=== PATIENT | female | born 1965 | race Caucasian/White ===

== ENCOUNTER 2022-07-27 20:41 | Emergency (ER) | payer MEDICAID ==
[~2022-07-27] VITALS: Ht 157.4 cm; Wt 81.6 kg
--- NOTE | 2022-07-27 21:12 | ED Lower Extremity ---
General Chief Complaint: Lower Extremity Stated Complaint: SORE ON BOTTOM OF RIGHT FOOT Source: patient Exam Limitations: no limitations History of Present Illness Date Seen by Provider: Jul 27, 2022 Time Seen by Provider: 21:10 Initial Comments Patient is a 57-year-old female presents ED with wound to right plantar foot. Patient noticed 2 weeks ago a small blister. She reports pain with walking. Patient noted the blister rupturing and noted a small black dark "hole". Patient does report pain. She is type II diabetic but states she does not take her metformin on a regular basis. She denies neuropathy of her lower extremity. Denies of any specific pain at this time besides when she walks. Denies fever, chills, surrounding redness or swelling. Allergies and Home Medications Allergies Coded Allergies: hydrocodone (Verified Allergy, Unknown, 07/27/22) Patient Home Medication List Home Medication List Reviewed: Yes Cephalexin (Cephalexin) 500 Mg Tablet, 500 MG PO QID Prescribed by: LEON INMAN on 07/27/222230 Doxycycline Monohydrate (Doxycycline Monohydrate) 100 Mg Tablet, 100 MG PO BID Prescribed by: LEON INMAN on 07/27/222230 Review of Systems Constitutional: No chills, No diaphoresis, No fever, No malaise, No weakness EENTM: No ear pain, No blurred vision, No double vision Respiratory: No cough, No dyspnea on exertion Cardiovascular: No chest pain Gastrointestinal: No abdominal pain, No diarrhea, No nausea, No vomiting Genitourinary: No decreased output, No discharge Musculoskeletal: No back pain, No joint pain; muscle pain Skin: change in color All Other Systems Reviewed Negative Unless Noted: Yes Past [id number] Hx Patient Social History Tobacco Use?: No Substance use?: No Alcohol Use?: No Past Medical History Surgery/Hospitalization HX: TYPE 2 DM, DEPRESSION AND ANXIETY Physical Exam Vital Signs Vital Signs - First Documented 07/27/22 20:49 Pulse 94 B/P (MAP) 132/89 (103) Pulse Ox 100 O2 Delivery Room Air Capillary Refill : Height, Weight, BMI Height: '" Weight: lbs. oz. kg; BMI Method: General Appearance: WD/WN HEENT: PERRL/EOMI, normal ENT inspection, TMs normal, pharynx normal Neck: non-tender, full range of motion, supple Cardiovascular: regular rate, rhythm, no edema, no gallop Respiratory: chest non-tender, lungs clear, normal breath sounds, no respiratory distress, no accessory muscle use Gastrointestinal: normal bowel sounds, non tender, soft, no organomegaly Back: normal inspection, no CVA tenderness Feet: right foot other (Pea-sized ulcer right plantar foot with no active drainage. No fluctuant mass. No surrounding redness or swelling) Neurologic/Psychiatric: repair specialist II-XII nml as tested, no motor/sensory deficits, alert, normal mood/affect, oriented x 3 Progress/Results/Core Measures Results/Orders Lab Results Laboratory Tests Test 07/27/22 21:20 Range/Units White Blood Count 9.0 4.3-11.0 10^3/uL Red Blood Count 5.41 H 3.80-5.11 10^6/uL Hemoglobin 16.0 11.5-16.0 g/dL Hematocrit 44 35-52 % Mean Corpuscular Volume 81 80-99 fL Mean Corpuscular Hemoglobin 30 25-34 pg Mean Corpuscular Hemoglobin Concent 37 H 32-36 g/dL Red Cell Distribution Width 12.5 10.0-14.5 % Platelet Count 291 130-400 10^3/uL Mean Platelet Volume 9.6 9.0-12.2 fL Immature Granulocyte % (Auto) 0 % Neutrophils (%) (Auto) 55 42-75 % Lymphocytes (%) (Auto) 37 12-44 % Monocytes (%) (Auto) 7 0-12 % Eosinophils (%) (Auto) 1 0-10 % Basophils (%) (Auto) 1 0-10 % Neutrophils # (Auto) 4.9 1.8-7.8 10^3/uL Lymphocytes # (Auto) 3.3 1.0-4.0 10^3/uL Monocytes # (Auto) 0.6 0.0-1.0 10^3/uL Eosinophils # (Auto) 0.1 0.0-0.3 10^3/uL Basophils # (Auto) 0.1 0.0-0.1 10^3/uL Immature Granulocyte # (Auto) 0.0 0.0-0.1 10^3/uL Erythrocyte Sedimentation Rate 19 0-30 MM/HR Sodium Level 134 L 135-145 MMOL/L Potassium Level 4.6 3.6-5.0 MMOL/L Chloride Level 99 98-107 MMOL/L Carbon Dioxide Level 24 21-32 MMOL/L Anion Gap 11 5-14 MMOL/L Blood Urea Nitrogen 13 7-18 MG/DL Creatinine 0.82 0.60-1.30 MG/DL Estimat Glomerular Filtration Rate 84 BUN/Creatinine Ratio 16 Glucose Level 327 H 70-105 MG/DL Calcium Level 9.8 8.5-10.1 MG/DL Corrected Calcium 9.7 8.5-10.1 MG/DL Total Bilirubin 0.9 0.1-1.0 MG/DL Aspartate Amino Transf (AST/SGOT) 44 H 5-34 U/L Alanine Aminotransferase (ALT/SGPT) 53 0-55 U/L Alkaline Phosphatase 101 40-136 U/L C-Reactive Protein High Sensitivity 0.55 H 0.00-0.50 MG/DL Total Protein 7.9 6.4-8.2 GM/DL Albumin 4.1 3.2-4.5 GM/DL My Orders Orders - JEAN CARLOS ORTIZ Cbc With Automated Diff (07/27/22 21:07) Comprehensive Metabolic Panel (07/27/22 21:07) Erythrocyte Sedimentation Rate (07/27/22 21:07) Hs C Reactive Protein (07/27/22 21:07) Foot, Right, 3 View (07/27/22 21:07) Lidocaine 1% Inj 20 Ml (Xylocaine 1% Inj (07/27/22 21:15) Doxycycline Hyclate Tablet (Vibramycin T (07/27/22 22:27) Cephalexin Capsule (Keflex Capsule) (07/27/22 22:27) Medications Given in ED Vital Signs/I&O 07/27/22 07/27/22 20:49 22:48 Pulse 94 68 B/P (MAP) 132/89 (103) 110/77 Pulse Ox 100 O2 Delivery Room Air Departure Communication (PCP) Reviewed previous ER visits, H&P, lab testing. Type II diabetic. She does not take metformin on a regular basis. Concern for a wound to her right plantar foot. Differential diagnosis, cellulitis, diabetic ulcer. On exam small pea- sized ulcer. No surrounding redness or swelling. tissue noted. Injected 1% lidocaine 5 mils around the area. Debride some of the tissue. No active purulent drainage. Bloody drainage noted. CBC, CMP, ESR, CRP and foot x-ray was ordered. Foot x-ray was negative for obvious osteomyelitis, foreign body. CBC, CMP and inflammatory markers grossly unremarkable. Concern for potential early ulcer. Patient does not appear toxic. Patient blood sugar was 347. She has not taken her metformin for the past few days. Not in DKA. Normal sensation to lower extremities. Denies history of neuropathy . recommend continue taking metformin. Continue monitoring your blood sugar. Discussed wo und care. Neosporin topical twice a day. Provided podiatry outpatient follow- up for further debridement. Wound care follow-up. If increasing pain, fever to return back to ED. not concern for osteomyelitis at this time. Follow-up with PCP in 2 days for reevaluation. Impression Primary Impression: Foot ulcer Disposition: HOME, SELF-CARE Condition: Stable Departure-Patient Inst. Decision time for Depature: 22:29 Referrals: KINA MORGAN APRN (PCP) Primary Care Physician ASRAH KATE DPM Patient Instructions: Diabetic Foot Ulcer (DC) Add. Discharge Instructions: Need to follow-up with podiatry for further evaluation of this wound. Stay off the wound. Neosporin topical antibiotic twice a day. Keep the area clean with soap and water. Bandage daily All discharge instructions reviewed with patient and/or family. Voiced understanding. Scripts Doxycycline Monohydrate (Doxycycline Monohydrate) 100 Mg Tablet 100 MG PO BID for 7 Days, #14 TAB Prov: JEAN CARLOS ORTIZ 07/27/22 Cephalexin (Cephalexin) 500 Mg Tablet 500 MG PO QID for 7 Days, #28 TAB Prov: JEAN CARLOS ORTIZ 07/27/22 JEAN CARLOS ORTIZ Jul 27, 2022 21:12
[2022-07-27] MEDS ORDERED: LIDOCAINE 1% INJ 20 ML VIAL INJ ONE (21:15)
[2022-07-27 21:27] LABS: BASOPHILS # (AUTO) 0.1 10^3/uL (0.0-0.1); BASOPHILS % (AUTO) 1 % (0-10); EOSINOPHILS # (AUTO) 0.1 10^3/uL (0.0-0.3); EOSINOPHILS % (AUTO) 1 % (0-10); HEMATOCRIT 44 % (35-52); LYMPHOCYTES # (AUTO) 3.3 10^3/uL (1.0-4.0); LYMPHOCYTES % (AUTO) 37 % (12-44); MEAN CORPUSCULAR HEMOGLOBIN 30 pg (25-34); MEAN CORPUSCULAR HGB CONC 37 g/dL (32-36); MEAN CORPUSCULAR VOLUME 81 fL (80-99); MEAN PLATELET VOLUME 9.6 fL (9.0-12.2); MONOCYTES # (AUTO) 0.6 10^3/uL (0.0-1.0); MONOCYTES % (AUTO) 7 % (0-12); NEUTROPHILS # (AUTO) 4.9 10^3/uL (1.8-7.8); NEUTROPHILS % (AUTO) 55 % (42-75); PLATELET COUNT 291 10^3/uL (130-400)
--- NOTE | 2022-07-27 21:34 | Diagnostic Imaging Report ---
CLINICAL INDICATION: Patient with plantar foot pain. Patient had blister on bottom of foot a couple days ago and now has a hole where the blister was. Patient has type II diabetes. EXAM: X-ray of the right foot, 3 views. COMPARISON: None. FINDINGS: There is no acute fracture or dislocation. There is hypertrophic calcaneal spur at plantar attachment. There is no bony erosive or destructive process. There is mild soft tissue swelling about the foot. There is no soft tissue gas or radiodense foreign object. IMPRESSION: 1: There is no acute fracture or dislocation. 2: There is no bony erosive or destructive process. 3: There is soft tissue swelling about the foot with no soft tissue gas or radiodense foreign object. Dictated by: Dictated on workstation # [id number]
[2022-07-27 21:48] LABS: ALBUMIN 4.1 GM/DL (3.2-4.5); POTASSIUM 4.6 MMOL/L (3.6-5.0)
[2022-07-27 21:49] LABS: CALCIUM 9.8 MG/DL (8.5-10.1)
[2022-07-27 21:51] LABS: ERYTHROCYTE SEDIMENTATION RATE 19 MM/HR (0-30); TOTAL PROTEIN 7.9 GM/DL (6.4-8.2)
[2022-07-27 21:52] LABS: BILIRUBIN,TOTAL 0.9 MG/DL (0.1-1.0)
[2022-07-27 21:54] LABS: CREATININE SERUM 0.82 MG/DL (0.60-1.30)
[2022-07-27] MEDS ORDERED: CEPHALEXIN 250 MG (KEFLEX) CAP PO STA (22:27)
[2022-07-27] MEDS ORDERED: DOXYCYCLINE 100 MG (VIBRAMYCIN) TABLET PO STA (22:27)
[2022-07-27] MEDS ORDERED: CEPH500T PO (22:31)
[2022-07-27] MEDS ORDERED: DOXY100T31 PO (22:31)
[2022-07-27 22:48] VITALS: BP 110/77
== END 2022-07-27 22:47 | disposition home or self-care (01) ==
LOC: ER 20:44
DX: E11.621 Type 2 diabetes mellitus with foot ulcer (principal); L97.519 Non-pressure chronic ulcer of other part of right foot with unspecified severity; T38.3X6A Underdosing of insulin and oral hypoglycemic [antidiabetic] drugs, initial encounter; Z91.138 Patient's unintentional underdosing of medication regimen for other reason; Z79.84 Long term (current) use of oral hypoglycemic drugs
CPT/HCPCS: 36415; 73630; 80053; 85025; 85652; 86141